=== PATIENT | female | born 1955 | race Caucasian/White ===

== ENCOUNTER → 2023-06-11 07:17 | Outpatient (REF) | payer MEDICARE, OTHER, SELFPAY ==
[2023-06-11 08:01] VITALS: BP 139/83; BP_SYST 99
== END ==
LOC: RADI 07:17
PROVIDERS: ATTENDING PHYSICIAN Otolaryngology; FAMILY PHYSICIAN Family Medicine
DX: E04.1 Nontoxic single thyroid nodule (principal)
CPT/HCPCS: 88173; 10005

== ENCOUNTER → 2023-07-30 07:18 | Outpatient (REF) | payer MEDICARE, OTHER, SELFPAY ==
[2023-07-30 07:47] VITALS: BP 138/97; BP_SYST 92
== END ==
LOC: RADI 07:18
PROVIDERS: ATTENDING PHYSICIAN Otolaryngology; FAMILY PHYSICIAN Family Medicine
DX: E04.1 Nontoxic single thyroid nodule (principal)
CPT/HCPCS: 88172; 88173; 10005; 88177

== ENCOUNTER → 2024-12-12 08:38 | Outpatient (REF) | payer MEDICARE, OTHER, SELFPAY | LOC: PAVMRI 08:38 | PROVIDERS: ATTENDING PHYSICIAN Orthopaedic Surgery; FAMILY PHYSICIAN Family Medicine | DX: M54.50 Low back pain, unspecified (principal) | CPT/HCPCS: 72148 ==